=== PATIENT | male | born 1995 | race Caucasian/White ===

== ENCOUNTER 2018-07-09 21:06 | Emergency (ER) | payer MEDICAID ==
[2018-07-09] MEDS: HYDROCODONE/APAP (5/325) TAB PO (22:55)
== END 2018-07-09 23:39 | disposition home or self-care (01) ==
LOC: FTE 23:39
DX: S06.0X0A Concussion without loss of consciousness, initial encounter (principal); S00.12XA Contusion of left eyelid and periocular area, initial encounter; H11.32 Conjunctival hemorrhage, left eye; W50.0XXA Accidental hit or strike by another person, initial encounter; Y92.89 Other specified places as the place of occurrence of the external cause; Z87.891 Personal history of nicotine dependence
CPT/HCPCS: 99283; Z7502